=== PATIENT | male | born 1960 | race Caucasian/White ===

== ENCOUNTER 2019-02-25 11:33 | Observation (INO) | payer MEDICARE ==
[~2019-02-25] VITALS: Ht 180.3 cm; Wt 72.6 kg
[2019-02-25] MEDS ORDERED: LEVEMIR100 UNIT/1 SUB-Q (11:51)
[2019-02-25] MEDS ORDERED: LIPITOR20 MG PO (11:52)
[2019-02-25] MEDS ORDERED: [UNRECOGNIZED DRUG - REMARK] (11:52)
[2019-02-25] MEDS ORDERED: LISINOPRIL20 MG PO (15:10)
[2019-02-25] MEDS ORDERED: ASPIRIN81 MG PO (15:11)
[2019-02-25] MEDS ORDERED: HUMALOG100 UNITS/ IV (15:13)
--- NOTE | 2019-02-25 15:15 | NUR ---
INSERTED EASILY INTO LEFT AC. BRISK BLOOD RETURN, FLUSHES EASILY. SECURED WITH CLEAR DRESSING. 20 GAUGE.
--- NOTE | 2019-02-25 16:23 | NUR ---
Orthostatic vital signs taken, laying, sitting, standing. of patient in room.
--- NOTE | 2019-02-25 16:24 | NUR ---
DR Jacobsen updated on patient status at 1613
--- NOTE | 2019-02-25 16:29 | NUR ---
At 1500 blood glucose test at beside shows 220 so per insulin titration flow sheet I adjusted the insulin drip to 3.4units/hr. At 1600 bedside glucose test shows 148 so IV insulin drip titrated down to 0.9units/hr per insulin titration flow sheet.
--- NOTE | 2019-02-25 17:04 | NUR ---
Resting in bed watching TV. Blood glucose test at bedside is 138, titrated down insulin drip to 0.8units/hr.
--- NOTE | 2019-02-25 17:19 | EKG ---
[facility] [address] [place], [place] [address] Signed Sinus tachycardia Otherwise normal ECG No previous ECGs available Confirmed by ANURAG GOOD MD ([id number]) on 02/25/2019 5:19:27 PM Electronically Signed By: ANURAG GOOD MD 02/25/19 1719 PATIENT NAME: JOHNNIE MORRISSEY JOSAFATLAYTON Electrocardiogram DATE OF : 56 PHYSICIAN: ANURAG GOOD MD REPORT #: [id number] REPORT IS CONFIDENTIAL AND NOT TO BE RELEASED WITHOUT AUTHORIZATION
--- NOTE | 2019-02-25 18:42 | NUR ---
IV #2 WAS INSERTED JUST AFTER ARRIVAL TO CCU DEPARTMENT.
--- NOTE | 2019-02-25 19:58 | NUR ---
RESTING IN BED AFTER EATING DINNER. STATES IS FEELING BETTER. INSULING DRIP DC'D AT 1940. WILL CHECK BS AT 2099. HAS LOOSE COUGH, NONPRODUCITVE AT THIS TIME. BREATH TONES ARE COURSE NOW WITH RARE EXP WHEEZE. BRUSHED TEETH. PT WOULD LIKE SOMETHING TO HELP WITH SLEEP. WILL EVAL THIS CLOSER TO HS.
--- NOTE | 2019-02-25 21:13 | NUR ---
BS 191 AND COVERED WITH 3 UNITS INSULIN PER SLIDING SCALE. PT HAS BEEN COUGING DR FLORENTINO MALHOTRA CALLED AND ORDERS RECIEVED.
--- NOTE | 2019-02-25 21:25 | NUR ---
PT GIVEN 10MG ROBITUSSIN AC FOR COUGH.
--- NOTE | 2019-02-25 22:25 | NUR ---
DR GOOD GIVEN UPDATE, MAY TRANSFER TO MS IF NEEDED.
--- NOTE | 2019-02-25 23:19 | NUR ---
PT CONT TO HAVE COUGH. GIVEN 200MG TESSALON PEARLS. ASSESSMENT DONE. PT REQUESTING THAT TEMP IN ROOM BE DECREASED. NO OTHER C/O. BREATH TONES ARE A LITTLE MORE DIMINSHED WITH CRACKLES SCATTERED THROUGHOUT AND COMT TO BE SOMEWHAT COARSE.
--- NOTE | 2019-02-26 00:10 | NUR ---
DR GOOD IN DEPT. UPDATE GIVEN ON PT'S BREATH TONES. IV SALINE LOCKED.
--- NOTE | 2019-02-26 01:45 | NUR ---
BS 80. PT IS ASYMPTOMATIC OF LOW BLOOD SUGAR. WILL RECHECK IN 1 HR. GIVEN 10ML RROBITUSSIN FOR COUGH. COUGH CONTS TO BE DRY AND NON PRODUCTIVE.
--- NOTE | 2019-02-26 02:45 | NUR ---
BS 72. GIVEN CHEESE AND CRACKERS. COUGH IS A LITTLE BETTER. PT SLEEPING A LITTLE OFF AND ON.
--- NOTE | 2019-02-26 04:30 | NUR ---
STATES HAS NOT BEEN ABLE TO SLEEP DUE TO COUGH. IS TRYING TO SLEEP WITH HOB ELEVAED. DENIES SOB. BREATH TONES HAVE DECREASED AIR EXCHANGE ON RT WITH FINE CRACKLES POST THROUGHOUT, COARSE AND DIM ON LT. TAKING PO WATER WELL.
--- NOTE | 2019-02-26 05:15 | NUR ---
DR GOOD GIVEN UPDATE ON PT BREATH TONES. ORDER RECIEVED FOR CBC AND CXR.
--- NOTE | 2019-02-26 06:15 | NUR ---
RESTING IN BED, HAS OCC COUGH.
--- NOTE | 2019-02-26 06:51 | NUR ---
TO XRAY DEPT FOR 2 VIEW CHEST XRAY PER W/C, ALVARADO WELL. FEELS READY FOR BREAKFAST.
--- NOTE | 2019-02-26 08:00 | NUR ---
ASSESSMENT DONE. HAS HARSH NON-PRODUCTIVE COUGH. PATIENT DENIES PAIN. LUNGS ARE COURSE THROUHOUT WITH SCATTERED CRACKLES. ACCUCHECK 131. NO SS INSULIN GIVEN. BREAKFAST GIVEN.
[2019-02-26] MEDS ORDERED: BENZONATATE100 MG PO (09:24)
[2019-02-26] MEDS ORDERED: VENTOLIN HFA18 GM INH (09:26)
[2019-02-26] MEDS ORDERED: OMEPRAZOLE20 MG PO (09:28)
[2019-02-26] MEDS ORDERED: AEROCHAMBER MA1 EACH MISC (10:21)
--- NOTE | 2019-02-26 11:10 | NUR ---
DISCHARGED VIA W/C ACCOMP BY .
== END 2019-02-26 11:10 | disposition home or self-care (01) ==
LOC: ED 11:33 → CCU 11:37
PROVIDERS: ADMIT Student in an Organized Health Care Education/Training Program
DX: E10.10 Type 1 diabetes mellitus with ketoacidosis without coma (principal); J20.9 Acute bronchitis, unspecified; E78.5 Hyperlipidemia, unspecified; I10 Essential (primary) hypertension; K21.9 Gastro-esophageal reflux disease without esophagitis; Z87.891 Personal history of nicotine dependence; Z88.0 Allergy status to penicillin; Z79.4 Long term (current) use of insulin; Z79.899 Other long term (current) drug therapy
CPT/HCPCS: 36415; 71045; 71046; 80048; 80053; 81001; 82010; 82800; 83735; 84100; 84484; 85025; 93005; 93010; 96361; 96365; 96374; 96376; 99285-25; C9113; G0378; J1815; J7030; J7042; J7120

== ENCOUNTER 2019-11-17 04:11 | Emergency (ER) | payer MEDICARE, MEDICAID ==
[~2019-11-17] VITALS: Ht 180.3 cm; Wt 72.6 kg
[~2019-11-17 04:11] MED LIST: AEROCHAMBER MA1 EACH MISC; ASPIRIN81 MG PO; BENZONATATE100 MG PO; HUMALOG100 UNITS/ IV; LEVEMIR100 UNIT/1 SUB-Q; LIPITOR20 MG PO; LISINOPRIL20 MG PO; OMEPRAZOLE20 MG PO; TESSALON PERLE100 MG PO; VENTOLIN HFA18 GM INH; [UNRECOGNIZED DRUG - REMARK]
== END 2019-11-17 05:56 | disposition home or self-care (01) ==
LOC: ED 04:11
DX: E11.649 Type 2 diabetes mellitus with hypoglycemia without coma (principal); T38.3X5A Adverse effect of insulin and oral hypoglycemic [antidiabetic] drugs, initial encounter; E78.5 Hyperlipidemia, unspecified; Z87.891 Personal history of nicotine dependence; Z88.0 Allergy status to penicillin; Z79.899 Other long term (current) drug therapy
CPT/HCPCS: 80053; 85025; 96374; 99285-25

== ENCOUNTER 2021-02-28 00:09 | Observation (INO) | payer OTHER ==
[~2021-02-28] VITALS: Ht 180.3 cm; Wt 92.3 kg
[~2021-02-28 00:09] MED LIST changes: +LISINOPRIL10 MG PO; -LISINOPRIL20 MG PO
[2021-02-28] MEDS ORDERED: LANTUS SOL100 UNIT/1 SUB-Q (00:24)
[2021-02-28] MEDS ORDERED: NOVOLOG FL100 UNIT/1 SUB-Q (00:25)
--- NOTE | 2021-02-28 05:30 | NUR ---
PT ADMITTED TO CCU AT 0330 PER STRETCHER FROM ED. ABLE TO MOVE SELF FROM STRETCHER TO BED. KEEPS EYES CLOSED MOST OF TIME AND WILL DOZE BUT ANSWERS QUESTIONS WELL. INSULIN INFUSION STARTED AT 6 UNITS/HOUR AT 0350. PT ABLE TO VOID USING URINAL IN BED. DID HAVE EPISODE OF NAUSEA WITH RETCHING, NO EMESIS. DR GOOD CALLED AND ORDERS RECIEVED. SCOPALAMINE PATCH APPLIED. PT ABLE TO GO BACK TO SLEEP.
--- NOTE | 2021-02-28 07:13 | NUR ---
HR UP TO 120'S, SITTING AT EDGE OF BED AND NEEDING TO VOID. WAS ATTEMPTING TO STAND AND HR UP TO 145. INSTRUCTED TO SIT AT EDGE OF BED. BACK TO BED AFTER VOIDING 325 CL YELLOW URINE. HR DEC BACK TO 105 WITH REST. REQUESTING WATER. GIVEN SMALL AMT WATER. REPORT TO DAY SHIFT
--- NOTE | 2021-02-28 07:30 | NUR ---
PATIENT RESTING IN BED AT THIS TIME. PATIENT REPROT RECIEVED FROM MODEL MAKER PLASTIC RN. ALL QUESTIONS ANSWERED. PER REPORT PATIENT ON AN INSULIN GTT AT THIS TIME AND TITRATING PER TITRATION PROTOCOLS. BRENNAN STUDENT NURSE WILL BE TAKING CARE OF PATIENT WITH THIS RN TODAY.
--- NOTE | 2021-02-28 08:22 | NUR ---
PT DROWSY BUT EASY TO AROUSE. PT LAYING IN BED. PT REPORTS FEELING NAUSEOUS, ZOFRAN PRN GIVEN. CALLED HIM, PT WAS ABLE TO HAVE A CONVERSTATION WITH HER. PT LAYING DOWN IN BED. PT COOPERATIVE WHEN PERFORMING ASSESSMENT AND ABLE TO ANSWER QUESTIONS.
--- NOTE | 2021-02-28 09:08 | NUR ---
IN TO OBTAIN BG READING. PT COOPERATIVE BUT DROWSY. TITRATED INSULIN DRIP PER INSULIN TITRATION PROTOCOL. PT ASLEEP AT THIS TIME.
--- NOTE | 2021-02-28 09:12 | NUR ---
PATIENT RESTING I NBED. INSULIN GTT TITRATION DONE WITH 2 RNS AND STUDENT RN. SEE WRITTEN TITRATION PROTOCOL IN PATIENTS CHART. PATIENT AT 2.4MLS/HR INSULIN AT THIS TIME. WILL VERIFY WITH MD OF CHANGING FLUID ORDERS TO D5 SINCE BS IS LESS THAN 200 NOW.
--- NOTE | 2021-02-28 10:00 | NUR ---
IN TO OBTAIN BG READING. PT LAYING IN BED DROWSY. TITRATED INSULIN DRIP PER INSULIN TITRATION PROTOCOL. PT AT 4.2 MLS/HR AT THIS TIME.
--- NOTE | 2021-02-28 10:30 | NUR ---
PT UP FOR CHEST XRAY, COMPLAINED OF NAUSEA AND VOMITTED IN EMESIS BAG. PRN NAUSEA MED GIVEN. EMESIS WAS ACEVEDO IN COLOR, LIQUID FORM. PT STATES HE FEELS BETTER AFTER VOMITTING. PT NOW RESTING. IS IN THE ROOM.
--- NOTE | 2021-02-28 11:13 | NUR ---
IN TO OBTAIN BG READING. PT ASLEEP BUT EASY TO AROUSE. TITRATED INSULIN DRIP PER INSULIN TITRATION PROTOCOL. PT AT 5.6 MLS/HR INSULIN AT THIS TIME.
--- NOTE | 2021-02-28 12:08 | NUR ---
CALLED MD GOOD TO UPDATE ABOUT PATIENTS INTAKE AND OUTPUT. ALSO, UPDATED ON ORTHOSTATIC VITALS. SEE NEW ORDERS FOR FLUID BOLUS. WILL CONTINUE TO CLOSELY MONITOR.
--- NOTE | 2021-02-28 13:00 | NUR ---
IN TO OBTAIN BG READING. PT DROWSY BUT EASY TO AROUSE. TITRATED INSULIN DRIP PER INSULIN PROTOCOL. PT AT 7MLS/HR AT THIS TIME.
--- NOTE | 2021-02-28 13:30 | NUR ---
IN THE ROOM WITH PT TO ASSIST ALFREDO WITH STARTING A NEW IV SITE. PT REPORTS NAUSEA. EMESIS BAG GIVEN. VOMITTED IN BAG. EMESIS APPEARED ACEVEDO AND LIQUID FORM. PRN ZOFRAN ADMINISTERED BY ALLYSSA ABARCA. PT SHOWS DECRSEASED SYMTOMS AND ALLOWED ALFREDO TO CONTINE WITH AN IV START.
--- NOTE | 2021-02-28 13:30 | NUR ---
STUDENT NURSE ATTEMPTED 1 IV START, ESTHELA RN ATEMPTED 1 IV START, JULEE RN ATTEMPTED 2 IV STARTS ALL WITH NO PATENT IV ACCESS. CALLED FOR AN ULTRASOUND GUIDED IV. MERY ABARCA IN AT THE BEDSIDE AT THIS TIME. PATIENT HAD 1 EPISODE OF EMESIS. GAVE PRN ZOFRAN PER ORDERS. PATIENT FEELS A LITTLE LESS NAUSEATED AT THIS TIME. WILL CONTINUE TO CLOSELY MONITOR.
--- NOTE | 2021-02-28 15:18 | NUR ---
PT HAS STAYED AT THE SAME TITRATION RATE PER INSULIN PROTOCOL. PT HAS BEEN ON 7MLS/HR INSULIN DRIP RATE.
--- NOTE | 2021-02-28 16:00 | NUR ---
IN TO OBTAIN BG READING. TITRATED INSULIN DRIP PER TITRATION PROTOCOL. PT AT 8.4 MLS/HR INSULIN DRIP RATE.
--- NOTE | 2021-02-28 16:30 | NUR ---
CALLED MD GOOD TO UPDATE ABOUT PATIENTS AFTERNOON. ORTHOSTATICS COMPLETED THIS AFTERNOON AFTER THE BOLUS WAS COMPLETED. PATIENT ALSO TRIED TO URINATE AND COULD NOT. BLADDER SCAN WAS COMPLETED AND SHOWS >800'S. PER MD STRAIGHT CATH X1. PATIENT AGREEABLE TO PLAN OF CARE. WILL CONTINUE TO CLOSELY MONITOR.
--- NOTE | 2021-02-28 16:53 | NUR ---
ASSISSTED PT UP TO URINAL, WAS NOT ABLE TO VOID. BLADDER SCAN SHOWED 800ML. PT STRAIGHT CATHED PER DR. GOOD'S ORDER. 550ML COLLECTED. PT STATES THERE IS LESS PRESSURE AND FEELS MORE RELIEVED. PT LYING DOWN SLEEPING.
--- NOTE | 2021-02-28 17:00 | NUR ---
STRAIGHT CATH COMPELTED BY STUDENT NURSE WITH THIS RN AT THE BEDSIDE. PATIENT TOLERATED WELL. NO OTHER NEEDS AT THIS TIME.
--- NOTE | 2021-02-28 17:22 | NUR ---
PT SLEEPING BUT EASY TO AROUSE. TITRATED INSULIN DRIP PER INSULIN TITRATION PROTOCOL. PT AT 5MLS/HR INSULIN DRIP AT THIS TIME.
--- NOTE | 2021-02-28 17:24 | NUR ---
PT HAS BEEN RESTING AND SLEEPING THROUGHOUT MY SHIFT. PT IS EASY TO AROUSE AND ANSWERS QUESTIONS APPROPRIATELY. PT IS STILL EXPERIENCING NAUSEA AND VOMITTING SYMPTOMS. NAUSEA PRN MEDICATIONS GIVEN THROUGHOUT SHIFT.
--- NOTE | 2021-02-28 18:29 | NUR ---
TITRATED INSULIN PER PROTOCOL. INSULIN DRIP RATE 3.6 MLS/HR AT THIS TIME.
--- NOTE | 2021-02-28 19:22 | NUR ---
MD GOOD CALLED. UPDATED MD ON PATIENTS CONDITION. PATIENT CONTINUES TO REST THROUGHOUT THE DAY. PATIENT HAS NOT HAD MUCH TO DRINK TODAY. WILL GIVE LANTUS AND THEN STOP INSULIN GTT 1HR AFTER. UPDATED ADULT SCHOOL TEACHER STAFF OF PLAN OF CARE. NO FURTHRER QUESTIONS AT THIS TIME.
--- NOTE | 2021-02-28 20:19 | NUR ---
IS MORE AWAKE TONIGHT AND STATES IS FEELING BETTER. REQUESTING SOMETHING TO EAT. GIVEN SUGAR FREE JELLO TO START. INSULIN INFUSION TURNED OFF AND IVF DEC TO 75ML/HR. BOWEL TONES ARE RARE.
--- NOTE | 2021-02-28 21:24 | NUR ---
PT WAS GIVEN SANDWICH BOX AND COTTAGE CHEESE BUT FELL ASLEEP. BS 137.
--- NOTE | 2021-02-28 23:00 | NUR ---
CONT TO SLEEP.
--- NOTE | 2021-03-01 00:22 | NUR ---
AWAKENS EASILY, DENIES C/O. DID DRINK ALL OF WATER BUT HAS ONLY EATEN A BITE OF JELLO. ATTEMPTED TO URINATE ON REQUEST BUT UNABLE TO DO SO AND DENIES FEELING OF NEED TO VOID. BLADDER SCANNED FOR 675ML. DR GOOD CALLED AND WILL CONT TO WATCH. IF PT UNABLE TO VOID BY 0600 WILL STRAIGHT CATH.
--- NOTE | 2021-03-01 01:10 | NUR ---
TRANSFERED TO MED SURG RM114. REPORT TO ALEA ABARCA.
--- NOTE | 2021-03-01 01:27 | NUR ---
transferred to unit 114 from icu, alert and oriented, ivf infusing, cbg 196, received 2 units ss insulin. tolerating liquids well, repositins self in bed
--- NOTE | 2021-03-01 03:48 | NUR ---
Resting, eyes closed, no c/o pain, turns and repositions self in bed
--- NOTE | 2021-03-01 04:29 | NUR ---
Pt has slept since being transferred from ICU. CBG 169, requires ss insulin coverage. On room air, IVF infusing w/o problems. turns and repositions self tolerated fluids, no emesis.
--- NOTE | 2021-03-01 07:59 | NUR ---
PATIENT IN BED APPEARS TO BE ASLEEP. BOARD UPDATED. WILL REAPPROACH LATER TIME.
[2021-03-01] MEDS ORDERED: FLUTICASONE PRO16 GM NAS (09:58)
[2021-03-01] MEDS ORDERED: GLUCOSE4 GM PO (10:00)
--- NOTE | 2021-03-01 10:13 | NUR ---
THIS RN IN PTS ROOM TO GIVE PT MORNING MEDS. PT SITTING UP IN BED. PT STATES THAT HE IS FEELING BETTER THIS AM. PT HAS NO CONCERNS THIS AM
--- NOTE | 2021-03-01 10:42 | NUR ---
VITALS AND I&O'S CHARTED. PATIENT HASD VISITOR IN ROOM. PATIENT REFUSED SHOWER. CALL LIGHT IN REACH
[2021-03-01] MEDS ORDERED: CLARITIN10 MG PO (11:07)
--- NOTE | 2021-03-01 11:07 | NUR ---
MED REC COMPLETE
[2021-03-01] MEDS ORDERED: NOVOLOG FL100 UNIT/1 SUB-Q (12:41)
--- NOTE | 2021-03-01 13:16 | NUR ---
PATIENT ATE 25% OF MEAL. WATER REFRESHED AN URINAL EMPTIED. PATIENT IN BED REFUSED UP IN CHAIR. CALL LIGHT IN REACH NOTHING MORE NEEDED AT THIS TIME
--- NOTE | 2021-03-02 09:36 | EKG ---
[facility] [address] [place] [address] Signed Normal sinus rhythm T wave abnormality, consider inferior ischemia Prolonged QT Abnormal ECG When compared with ECG of 25-FEB-2019 12:21, T wave inversion more evident in Inferior leads Confirmed by ANURAG GOOD MD ([id number]) on 03/02/2021 9:35:47 AM Electronically Signed By: ANURAG GOOD MD 03/02/21 0936 PATIENT NAME: JOHNNIE MORRISSEY Electrocardiogram DATE OF : 56 PHYSICIAN: ANURAG GOOD MD REPORT #: [id number] REPORT IS CONFIDENTIAL AND NOT TO BE RELEASED WITHOUT AUTHORIZATION
== END 2021-03-01 14:00 | disposition home or self-care (01) ==
LOC: ED 00:09 → CCU 02:53 → MS 03-01 01:06
PROVIDERS: ADMIT Internal Medicine; ATTEND Internal Medicine
DX: E11.10 Type 2 diabetes mellitus with ketoacidosis without coma (principal); R65.10 Systemic inflammatory response syndrome (SIRS) of non-infectious origin without acute organ dysfunction; I10 Essential (primary) hypertension; Z20.822 Contact with and (suspected) exposure to COVID-19; K21.9 Gastro-esophageal reflux disease without esophagitis; E78.5 Hyperlipidemia, unspecified; Z79.4 Long term (current) use of insulin
CPT/HCPCS: 36415; 71046; 80048; 80053; 81001; 82010; 82800; 83690; 85025; 93005; 93010; 96372; 96374; 96375; 96376; 99285-25; C9803; G0378; J0780; J1200; J1650; J1815; J2405; J2550; J2765; J3480; J7030; J7121; U0003

== ENCOUNTER 2022-05-16 06:44 | Observation (INO) | payer MEDICARE, MEDICAID ==
[~2022-05-16] VITALS: Ht 180.3 cm; Wt 86.9 kg
[~2022-05-16 06:44] MED LIST changes: +BENADRYL25 MG PO; +CLARITIN10 MG PO; +FISH OIL 1,001000 MG PO; +FLUTICASONE PRO16 GM NAS; +GLUCOSE4 GM PO; +LANTUS SOL100 UNIT/1 SUB-Q; -LISINOPRIL10 MG PO; +NOVOLOG FL100 UNIT/1 SUB-Q; +ONDANSETRON ODT8 MG PO; +VITAMIN D325 MCG PO; +ZESTRIL2.5 MG PO
--- NOTE | 2022-05-16 15:15 | NUR ---
REPORT RECEIVED, CARE OF PT ASSUMED AT THIS TIME. PT TRANSPORTED VIA STRETCHER BY LABORATORY MECHANIC HELPER. ON HEEL REDUCER ON ARRIVAL. PT UNABLE TO SELF TRANSFER FROM STRETCHER TO BED. HEART RATE 100 UPON ARRIVAL. INSULIN DRIP INFUSING AT 6 UNITS/HR. THIS RN REMAINS AT BEDSIDE.
--- NOTE | 2022-05-16 15:58 | NUR ---
INITIAL ASSESSMENT COMPLETED. SECOND IV STARTED IN PT LEFT HAND, WELL TOLERATED BY PT. INSULIN DRIP TITRATED PER PROTOCOL (SEE FLOWSHEET). PT VOMITED 100 MLS DURING ASSESSMENT. NAUSEA MEDICATION GIVEN. PT REQUESTING WATER. PT EDUCATION PROVIDED ABOUT DIETARY RESTRICTIONS. AFTER 10 MINUTES, PT REORTS NAUSEA HAS SUBSIDED. PT'S HANDS AND FEET VERY COLD. PT DENIES NUMBNESS AND TINGLING IN EXTRIMITIES. PT ABLE TO STAND AT BEDSIDE TO VOID. HEART RATE INTO THE 130S WITH STANDING. PT NOW BACK IN BED. PLAN OF CARE ESTABLISHED. CALL LIGHT WITHIN REACH. WILL CONTINUE TO MONITOR.
--- NOTE | 2022-05-16 17:43 | NUR ---
PT'S CLAUS UPDATED ON THE PHONE.
--- NOTE | 2022-05-16 20:08 | NUR ---
PATIENT RESTING IN BED. PATIENT EDUCATED ON HOURLY BLOOD CHECKS. ASSESSMENT COMPLETED. FLUIDS CHANGED PER DR GOOD. PATIENT DENIES PAIN. CALL LIGHT IN REACH AND BED IN LOW POSITION.
--- NOTE | 2022-05-16 23:42 | NUR ---
PATIENT RESTING IN BED WITH EYES CLOSED. EASY TO WAKE FOR BG CHECKS. UPDATED PATIENT ON SHUTTING OFF INSULIN DRIP AND DECREASING BG CHECKS. PATIENT REQUESTED LIGHTS BE SHUT OFF TO OBTAIN SLEEP.
--- NOTE | 2022-05-17 03:32 | NUR ---
PATIENT RESTING IN BED WITH EYES CLOSED. RESPIRATIONS EVEN AND UNLABORED. CALL LIGHT IN REACH.
--- NOTE | 2022-05-17 05:37 | NUR ---
LAB AT BEDSIDE FOR AM LAB DRAW. BG CHECKED AND INDULIN GIVEN PER ORDER. CALL LIGHT IN REACH.
--- NOTE | 2022-05-17 07:30 | NUR ---
REPORT RECIEVED. PATIENT IS AWAKE AND WATCHING TV. STATES HE FEELS BETTER TODAY. IVF INFUSING.
--- NOTE | 2022-05-17 08:00 | NUR ---
PATIENT AWAKE AND SITTING UP FOR BREAKFAST. FACE AND HANDS WASHED. VITALS AND I&OS CHARTED. CALL LIGHT IN EASY REACH
--- NOTE | 2022-05-17 08:40 | NUR ---
ASSESSMENT DONE. DENIES PAIN. TALKED WITH PATIENT ABOUT POC FOR DAY INDICATES UNDERSTANDING. 1 UNIT OF INSULIN GIVEN FOR A ACUCHECK OF 163.
--- NOTE | 2022-05-17 08:50 | NUR ---
DR. GOOD HERE TO SEE PATIENT. ORDERS RECIEVED TO DISCHARGE TO HOME. MONITOR DC'D, IVF DC'D. SL TO RIGHT ARM DC'D WITH CATH INTACT.
[2022-05-17] MEDS ORDERED: LANTUS SOL100 UNIT/1 SUB-Q ×2 (09:03→09:48)
[2022-05-17] MEDS ORDERED: CARBOXYMETHYLCE15 ML OU (09:28)
[2022-05-17] MEDS ORDERED: NOVOLOG FL100 UNIT/1 SUB-Q (09:48)
[2022-05-17] MEDS ORDERED: GLUCOSE GEL38 GM PO (09:50)
--- NOTE | 2022-05-17 10:00 | NUR ---
DISCHARGED TO HOME.
== END 2022-05-17 09:55 | disposition home or self-care (01) ==
LOC: ED 06:44 → CCU 13:44 → MS 14:18 → CCU 14:20
PROVIDERS: ADMIT Internal Medicine; ATTEND Internal Medicine
DX: E10.10 Type 1 diabetes mellitus with ketoacidosis without coma (principal); I10 Essential (primary) hypertension; K21.9 Gastro-esophageal reflux disease without esophagitis; G47.33 Obstructive sleep apnea (adult) (pediatric); E78.5 Hyperlipidemia, unspecified; Z88.0 Allergy status to penicillin; Z20.822 Contact with and (suspected) exposure to COVID-19
CPT/HCPCS: 36415; 80048; 80053; 81001; 82010; 82800; 85025; 87502; A9270; C9803; J1650; J1790; J1815; J2405; J3480; J7030; U0003

== ENCOUNTER 2024-04-09 22:55 | Emergency (ER) | payer OTHER, MEDICARE, MEDICAID ==
[~2024-04-09] VITALS: Ht 180.3 cm; Wt 78.0 kg
[~2024-04-09 22:55] MED LIST changes: +CARBOXYMETHYLCE15 ML OU; +GLUCOSE GEL38 GM PO
[2024-04-09] MEDS ORDERED: KETOROLAC TROMETHAMINE 60 MG/2 ML VIAL IM ONE (23:45)
[2024-04-10] MEDS ORDERED: CEPHALEXIN500 M1 PO (04:08)
[2024-04-10] MEDS ORDERED: HYDROCODON-ACE1 EA10 PO (04:08)
[2024-04-10] MEDS ORDERED: CEPHALEXIN MONOHYDRATE 500 MG HOME.PACK PO ONE (04:15)
[2024-04-10] MEDS ORDERED: HYDROCODONE BIT/ACETAMINOPHEN 5/325 MG 1 TAB HOME.PACK PO ONE (04:15)
[2024-04-10 04:47] VITALS: BP 141/78
== END 2024-04-10 04:48 | disposition home or self-care (01) ==
LOC: ED 22:55
DX: S82.202A Unspecified fracture of shaft of left tibia, initial encounter for closed fracture (principal); S76.102A Unspecified injury of left quadriceps muscle, fascia and tendon, initial encounter; E11.9 Type 2 diabetes mellitus without complications; W18.09XA Striking against other object with subsequent fall, initial encounter; Z88.0 Allergy status to penicillin; Z79.899 Other long term (current) drug therapy; Z79.4 Long term (current) use of insulin; Z79.82 Long term (current) use of aspirin
CPT/HCPCS: 73560; 73700; A9270; J1885

== ENCOUNTER 2024-07-30 14:12 | Emergency (ER) | payer MEDICARE, MEDICAID ==
[~2024-07-30] VITALS: Ht 180.3 cm; Wt 74.1 kg
[~2024-07-30 14:12] MED LIST changes: +CEPHALEXIN500 M1 PO; +HYDROCODON-ACE1 EA10 PO
[2024-07-30] MEDS ORDERED: DIPHTH,PERTUSS(ACELL),TET VAC 0.5 ML SYRINGE IM ONE (14:30)
[2024-07-30 14:59] VITALS: BP 144/76
== END 2024-07-30 14:58 | disposition home or self-care (01) ==
LOC: ED 14:12
DX: S61.211A Laceration without foreign body of left index finger without damage to nail, initial encounter (principal); E11.9 Type 2 diabetes mellitus without complications; Z88.0 Allergy status to penicillin; Z79.899 Other long term (current) drug therapy; Z79.4 Long term (current) use of insulin; Z79.82 Long term (current) use of aspirin; W27.0XXA Contact with workbench tool, initial encounter
CPT/HCPCS: 90471; 90715; 99282-25

== ENCOUNTER 2024-11-17 16:43 | Emergency (ER) | payer OTHER, MEDICARE, MEDICAID ==
[~2024-11-17] VITALS: Ht 180.3 cm; Wt 79.8 kg
[2024-11-17] MEDS ORDERED: HYDROCODONE/ACETA 5/325 TAB PO ONE (19:30)
[2024-11-17] MEDS ORDERED: IBUPROFEN 400 MG TAB PO ONE (19:30)
[2024-11-17] MEDS ORDERED: HYDROCODONE BIT/ACETAMINOPHEN 5/325 MG 1 TAB HOME.PACK PO ONE (21:00)
[2024-11-17 21:25] VITALS: BP 106/82
== END 2024-11-17 21:25 | disposition home or self-care (01) ==
LOC: ED 16:43
DX: S32.591A Other specified fracture of right pubis, initial encounter for closed fracture (principal); E10.9 Type 1 diabetes mellitus without complications; E78.5 Hyperlipidemia, unspecified; G47.30 Sleep apnea, unspecified; Z88.0 Allergy status to penicillin; Z79.4 Long term (current) use of insulin; Z79.82 Long term (current) use of aspirin; Z79.899 Other long term (current) drug therapy; W01.0XXA Fall on same level from slipping, tripping and stumbling without subsequent striking against object, initial encounter
CPT/HCPCS: 72192; 73502; 99284-25; A9270

== ENCOUNTER 2024-11-27 20:21 | Emergency (ER) | payer MEDICARE, OTHER, MEDICAID ==
[~2024-11-27] VITALS: Ht 180.3 cm; Wt 79.8 kg
[~2024-11-27 20:21] MED LIST changes: +HYDROCODON-ACE1 EA11 PO
--- OUTSIDE RECORDS SUMMARY | 2024-11-27 20:29 | XMS ---
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 - 2 Visits in 30 Days CARE PROVIDERS There are no care providers on record at this time. Jhoan has no Care Guidelines for this patient. [place] [facility] MO.) [facility] T[facility] NOTE: Visits indicate total known visits. ED/C VISIT TRACKING (12 MO.) [facility] COMPLAINT: - PELVIC PAIN 11/17/2024 16:44 [facility] [place] TYPE: Emergency COMPLAINT: - HIP PAIN DIAGNOSES: - Allergy status to penicillin - Fall on same level from slipping, tripping and stumbling without subsequent striking against object, initial encounter - Hyperlipidemia, unspecified - marine oil terminal superintendent (current) use of aspirin - marine oil terminal superintendent (current) use of insulin - Other [facility] (current[facility] drug therapy - Other specified fracture of right pubis, initial encounter for closed fracture - Pain in right hip - Sleep apnea, unspecified - Type 1 diabetes mellitus without complications 07/30/2024 14:12 [facility] [place] TYPE: Emergency COMPLAINT: - LT FINGER LACERATION DIAGNOSES: - Allergy status to penicillin - Contact with workbench tool, initial encounter - Laceration without foreign body of left index finger without damage to nail, initial encounter - marine oil terminal superintendent (current) use of aspirin - marine oil terminal superintendent (current) use of insulin - Other supervisor intermediates (current) drug therapy - Type 2 diabetes mellitus without complications 04/09/2024 22:55 [facility] [place] TYPE: Emergency COMPLAINT: - KNEE PAIN DIAGNOSES: - Allergy status to penicillin - [facility] (current) use of aspirin - marine oil terminal superintendent (current) use of insulin - Other supervisor intermediates (current) drug therapy - Pain in left knee - Striking against other object with subsequent fall, initial encounter - Type 2 diabetes mellitus without complications - Unspecified fracture of shaft of left tibia, initial encounter for closed fracture - Unspecified injury of left quadriceps muscle, fascia and tendon, initial encounter INPATIENT VISIT TRACKING (12 MO.) No inpatient visits to display in this time frame [email or web address]
[2024-11-27] MEDS ORDERED: MORPHINE SULFATE 4 MG/ML VIAL IV ONE (20:45)
[2024-11-27] MEDS ORDERED: ondansetron HCL 4 MG/2 ML VIAL IV ONE (20:45)
[2024-11-27 20:50] LABS: HEMOGLOBIN 13.6 g/dL (12.0-18.0); RDW 13.5 (10.5-15.0)
[2024-11-27 20:53] LABS: BASOPHILS 0.9 % (0-2); EOSINOPHILS 1.5 % (0-6); HEMATOCRIT 40.1 % (35.0-50.0); LYMPHOCYTES 16.1 % (24-44); MCH 33.2 (27-36); MCHC 33.9 g/dl (30-36); MCV 97.9 fl (81-99); NEUTROPHILS 68.5 % (39-80); PLATELET COUNT 335 K/uL (140-440); RBC 4.09 M/ul (4.3-5.7)
[2024-11-27 21:04] LABS: ALBUMIN 3.8 g/dL (3.4-5.0); ANION GAP 18.6 (7-21); BILIRUBIN, TOTAL 1.2 mg/dL (0.2-1.0); BUN/CREATININE RATIO 16.43 (6.0-28.6); CALCIUM 9.8 mg/dL (8.5-10.1); CREATININE, SERUM 0.73 mg/dL (0.70-1.30); POTASSIUM 3.6 mmol/L (3.5-5.1); PROTEIN, TOTAL 7.6 g/dL (6.4-8.2)
[2024-11-27] MEDS ORDERED: SODIUM CHLORIDE 0.9% 500 ML IV ONE (21:15)
[2024-11-27] MEDS ORDERED: LIDOCAINE & ANTACID 35 ML BTL PO ONE ×2 (21:30→22:00)
[2024-11-27] MEDS ORDERED: HYDROCODONE BIT/ACETAMINOPHEN 5/325 MG 1 TAB HOME.PACK PO ONE (22:15)
[2024-11-27 22:17] VITALS: BP 158/74
== END 2024-11-27 22:18 | disposition home or self-care (01) ==
LOC: ED 20:21
PROVIDERS: Family Medicine
DX: S32.10XA Unspecified fracture of sacrum, initial encounter for closed fracture (principal); S32.591A Other specified fracture of right pubis, initial encounter for closed fracture; W19.XXXA Unspecified fall, initial encounter; E10.9 Type 1 diabetes mellitus without complications; E78.5 Hyperlipidemia, unspecified; Z88.0 Allergy status to penicillin; Z79.4 Long term (current) use of insulin; Z79.82 Long term (current) use of aspirin
CPT/HCPCS: 36415; 74177; 80053; 85025; 96375; 99284-25; A9270; J2270; J2405; J7040; Q9967